=== PATIENT | male | born 1965 | race Caucasian/White ===

== ENCOUNTER 2019-10-11 16:01 | Emergency (ER) | payer OTHER, SELFPAY ==
[2019-10-11 16:12] VITALS: BP 146/94; PULSE 89; RESP 18; TEMP 36.8; O2SAT 99
--- NOTE | 2019-10-11 16:17 | ED.UPPEXIN ---
HPI - Extremity Injury (Upper) General Chief Complaint: Extremity Injury, Upper Stated Complaint: INJURED R SHOULDER Time Seen by Provider: 10/11/19 16:18 Source: patient Mode of arrival: ambulatory Limitations: no limitations History of Present Illness HPI narrative: A 53 y/o male, who is a smoker/nondrinker, presents to with c/o right shoulder pain since 2:20 PM. Pt states he was lifting up lindsay when he turned and felt a sharp pain in his shoulder, at lower posterior/ scapula aspect . Pt is right hand dominant. He denies a fever, a cough, CP, and a PMHx of previous shoulder problems. Onset (ago): hour(s) (2:20 PM) Other Extremity Injury: Right: shoulder Other injuries: none Handedness: right Related Data Home Medications Medication Instructions Recorded Confirmed amitriptyline 50 mg PO DAILY 10/11/19 10/11/19 atorvastatin 40 mg PO DAILY 10/11/19 10/11/19 insulin glargine [Basaglar KwikPen 70 unit SUBCUT DAILY 10/11/19 10/11/19 U-100 Insulin] lisinopril-hydrochlorothiazide 1 tablet PO DAILY 10/11/19 10/11/19 metoprolol succinate 50 mg PO DAILY 10/11/19 10/11/19 Allergies Allergy/AdvReac Type Severity Reaction Status Date / Time morphine Allergy Severe RASHID Verified 10/11/19 16:14 Review of Systems Review of Systems: Narrative: General/Constitutional: Denies: weight loss,fever Eyes: Denies: Redness,discharge Ears/Nose/Throat: Denies: Epistaxis,ear discharge Respiratory: Denies: Hemoptysis, cough Cardiovascular: Denies: CP Gastrointestinal: Denies: Vomiting, Bleeding-rectal Skin: Denies: Lumps, eruption Musculoskeletal: Reports: right shoulder pain Neurologic: Denies: Focal Weakness,Sz Hematologic: Denies: Petechiae/Purpura Psychiatric: Denies: Suicidal ideation [facility] Past Medical History Medical History Anxiety Cataract Diabetes Diverticulitis GERD (gastroesophageal reflux disease) HLD (hyperlipidemia) HTN (hypertension) Sleep apnea Surgical History Surgical History History of colon surgery Hx of appendectomy Hx of cholecystectomy Social History Social History Smoking packs per day: 0.5 Smoking cigarettes per day: 10.0 Smoking status: Current every day smoker Gender identity (if verbalized by the patient): Male Comments PCP: June Mcbride NP At time of signature, agree with nursing past medical, surgical, social and family history. There is no relevant family history pertinent to the presenting complaint. Exam Narrative: Exam Narrative: General Appearance: Well appearing, Well nourished, No distress EYE: PERRLA, EOMI, Conjunctiva clear Ears: External ear normal, Auditory canal normal Nose: Normal nose, Nares clear Mouth/Throat: Normal appearing, Normal lips Neck: Supple Respiratory: Airway patent, No respiratory distress Musculoskeletal: Normal strength (mostly intact, limited abduction, unlimeted IR/ ER, flexion/extension by pain), Tenderness ( lower scapular with mild decreased ROM), negative drop arm, Jobes, Neer, apprehension Skin: Warm, Dry, Normal color Neurological: A&O x3, Speech clear, CN II-XII intact Psychiatric: Normal mood, Normal affect Course Vital Signs Vital signs: Vital Signs Temperature 98.3 F 10/11/19 16:12 Pulse Rate 89 10/11/19 16:12 Respiratory Rate 18 10/11/19 16:12 Blood Pressure 146/94 H 10/11/19 16:12 Pulse Oximetry 99 10/11/19 16:12 Temperature 98.3 F 10/11/19 16:12 Pulse Rate 89 10/11/19 16:12 Respiratory Rate 18 10/11/19 16:12 Blood Pressure 146/94 H 10/11/19 16:12 Pulse Oximetry 99 10/11/19 16:12 Discharge Plan Discharge Clinical Impression: Muscle strain of right scapular region Qualifiers: Encounter type: initial encounter Qualified Code(s): S46.911A - Strain of unspecified muscle, fascia and tendon at shoulder and upper arm level, rig
== END 2019-10-11 16:42 | disposition home or self-care (01) ==
PROVIDERS: Emergency Provider Emergency Medicine
DX: S46.911A Strain of unspecified muscle, fascia and tendon at shoulder and upper arm level, right arm, initial encounter (principal); X50.9XXA Other and unspecified overexertion or strenuous movements or postures, initial encounter; E11.9 Type 2 diabetes mellitus without complications; H26.9 Unspecified cataract; K21.9 Gastro-esophageal reflux disease without esophagitis; E78.5 Hyperlipidemia, unspecified; I10 Essential (primary) hypertension; G47.30 Sleep apnea, unspecified
CPT/HCPCS: 99213; G0463

== ENCOUNTER 2019-10-14 11:12 | Emergency (ER) | payer OTHER, SELFPAY ==
--- NOTE | ~2019-10-14 | XR_ITS ---
EXAMINATION: XR shoulder RT min 2V EXAM DATE: 10/14/2019 12:37 INDICATION: Initial encounter following injury, with pain of the right shoulder. TECHNIQUE: The following right shoulder projections obtained: frontal projection with internal rotati on, frontal projection with external rotation, Grashey, and scapular Y view (4+ views). There is no prior study for comparison. FINDINGS: No evidence of right shoulder rotator cuff calcific tendinosis. There is mild acromiocla vicular joint primary osteoarthritis. There are no acute fractures or dislocations identified. There is no subcutaneous gas. The soft tissue is unremarkable. There are no radiopaque foreign bodies. IMPRESSION: Mild right acromioclavicular osteoarthritis. Reviewed, dictated and finalized at location [facility]
[2019-10-14 11:24] VITALS: BP 152/89; PULSE 88; RESP 20; O2SAT 100
--- NOTE | 2019-10-14 11:25 | ED.BACK ---
HPI - Back Pain/Injury General Chief Complaint: Back Pain/Injury Stated Complaint: right shoulder injury Time Seen by Provider: 10/14/19 11:16 Source: patient Mode of arrival: ambulatory Limitations: no limitations History of Present Illness HPI Narrative: A 53 y/o male presents to the ED with c/o constant right shoulder pain secondary to an injury. Pt states that on 10/11/19 he injured his right shoulder while he was at work putting a box of lindsay into a truck. He notes that he went to urgent care and was prescribed Tylenol with Codeine. At that urgent care visit, he did not have imaging done on his right shoulder. He adds that the Tylenol and Codeine do not help alleviate any of his right shoulder pain and the pain is aggravated with movement. Pt reports slight numbness and tingling in right hand, but denies any other symptoms. MD elicited complaint: other (Right shoulder pain) Pertinent past history: recent trauma (Heavy lifting) Onset (ago): day(s) (3) Timing: constant Exacerbating factors: movement Relieving factors: none Context: while lifting Associated symptoms: other (Slight numbness and tingling in right hand) Treatments prior to arrival: acetaminophen and other medications (Codeine) Work related injury: Yes Related Data Home Medications Medication Instructions Recorded Confirmed amitriptyline 50 mg PO DAILY 10/11/19 10/11/19 atorvastatin 40 mg PO DAILY 10/11/19 10/11/19 insulin glargine [Basaglar KwikPen 70 unit SUBCUT DAILY 10/11/19 10/11/19 U-100 Insulin] lisinopril-hydrochlorothiazide 1 tablet PO DAILY 10/11/19 10/11/19 metoprolol succinate 50 mg PO DAILY 10/11/19 10/11/19 Allergies Allergy/AdvReac Type Severity Reaction Status Date / Time morphine Allergy Severe RASHID Verified 10/11/19 16:14 Review of Systems Review of Systems: All systems reviewed & are unremarkable except as noted in HPI and below Musculoskeletal: Musculoskeletal: Reports other (Right shoulder pain) Neurologic: Reports numbness (Slight right hand) and Reports tingling (Slight right hand) PMFSH Past Medical History Medical History (Updated 10/14/19 @ 12:47 by Joaquin Tan MD) Anxiety Cataract Diabetes Diverticulitis GERD (gastroesophageal reflux disease) HLD (hyperlipidemia) HTN (hypertension) Sleep apnea Surgical History Surgical History (Updated 10/14/19 @ 11:40 by Kelsie King) H/O left wrist surgery History of carpal tunnel release History of colon surgery Hx of appendectomy Hx of cholecystectomy Social History Social History Smoking packs per day: 0.5 Smoking cigarettes per day: 10.0 Smoking status: Current every day smoker Gender identity (if verbalized by the patient): Male Exam Narrative: Exam Narrative: GENERAL: Well-appearing, well-nourished, and in no acute distress. HEAD: Normocephalic, atraumatic. CHEST: Clear to auscultation. No respiratory distress. HEART: Regular rate and rhythm. Normal peripheral pulses. EXTREMITIES: Normal range of motion but with pain in the right upper extremity when trying to lift his arm vertically past 90 degrees. Patient has point tenderness over the right acromioclavicular joint. There is no swelling. Negative empty can test. Patient is able to reach backwards towards the midline of his back with right upper extremity to the level of T8. No neurologic deficit in the right upper extremity despite report of paresthesia to the dorsal aspect of the hand. SKIN: Warm, dry, no rash. NEURO: No focal deficits. Alert and oriented x3. Course Course Emergency Course: Informed of results. Anti-inflammatories for home as well as a sling for comfort. Discussed need for early mobilization of the arm to prevent a frozen shoulder. Patient will need to follow-up with his Workmen's Comp. doctor. We will give a lifting restriction. Vital Signs Vital signs: Vital Signs Pulse Rate 88 10/14/19 11:24 Respiratory Rate 2
[2019-10-14] MEDS: KETOROLAC (*BKC) 60 MG/2 ML VIAL IM (12:07)
== END 2019-10-14 13:12 | disposition home or self-care (01) ==
PROVIDERS: Emergency Provider Emergency Medicine
DX: M19.011 Primary osteoarthritis, right shoulder (principal); E11.9 Type 2 diabetes mellitus without complications; K21.9 Gastro-esophageal reflux disease without esophagitis; E78.5 Hyperlipidemia, unspecified; I10 Essential (primary) hypertension; G47.30 Sleep apnea, unspecified; F17.210 Nicotine dependence, cigarettes, uncomplicated; H26.9 Unspecified cataract; Z79.4 Long term (current) use of insulin
CPT/HCPCS: 73030; 96372; 99283; A4565; J1885